=== PATIENT | male | born 1945 | race Caucasian/White ===

== ENCOUNTER → 2020-08-21 | Outpatient (CLI) | payer MEDICARE, OTHER | LOC: YCFC.O 16:21 | PROVIDERS: ATTEND Nurse Practitioner | DX: Z03.89 Encounter for observation for other suspected diseases and conditions ruled out (principal); Z20.828 Contact with and (suspected) exposure to other viral communicable diseases ==

== ENCOUNTER 2020-10-04 14:49 | Emergency (ER) | payer MEDICARE, OTHER ==
[2020-10-04] MEDS ORDERED: TETANUS,DIPHTHERIA,PERTUSSIS 1 EA SYG IM ONE (15:01)
--- NOTE | 2020-10-04 15:02 | ED.PDOC ---
History of Present Illness - General Time Seen by Provider: 10/04/20 14:50 Source: patient, RN notes reviewed, Vital Signs reviewed Exam Limitations: no limitations - History of Present Illness Initial Comments: 75 yo male with hx of prostate cancer in remission comes in after fall forward while moving furniture today. Fell onto face, denies LOC. Has laceration to right eye, and bilateral shoulder pain. Unsure when his last tetanus shot was. No AMS< not on blood thinners. Occurred: just prior to arrival Allergies/Adverse Reactions: Allergies NO KNOWN ALLERGY Allergy (Verified 10/04/20 15:08) Home Medications: Ambulatory Orders Gentamicin 0.3% Ophth Елена [Garamycin Opthalmic Solution] 0.3 % OP Q4H 5 Days #1 bttl 10/04/20 Naproxen Sodium [Naproxen] 220 mg PO BID PRN #30 tab 10/04/20 Review of Systems - Review of Systems Constitutional: Denies: chills, fever EENTM: Denies: eye pain, blurred vision, tearing, double vision, throat pain Respiratory: Denies: cough, short of breath Cardiology: Denies: chest pain, palpitations, syncope Gastrointestinal/Abdominal: Denies: abdominal pain Genitourinary: Denies: hematuria Musculoskeletal: States: joint pain, muscle pain, neck pain. Denies: back pain Skin: States: rash Neurological: Denies: headache, numbness, paresthesia, seizure, weakness Endocrine: Denies: unexplained weight gain, unexplained weight loss Hematologic/Lymphatic: Denies: blood clots, easy bleeding, easy bruising Past Medical History (General) - Patient Medical History Hx Seizures: No Hx Stroke: No Hx Dementia: No Hx Asthma: No Hx Congestive Heart Failure: No Hx Pacemaker: No Hx Hypertension: Yes Hx Cancer: Yes - prostate Physical Exam - Physical Exam General Appearance: Alert, Comfortable, No apparent distress, Well Developed, Well Groomed, Well Hydrated, Well Nourished Head Injury: other - negative goff sign, no raccoon eyes, does have mild swelling to upper right eye lid, 3 cm laceration to upper and lower eyelid on right Eye Exam: right other - EOMI, conjuncitiva injected, PERRLA, left normal ENT Exam: hearing grossly normal, no evidence of ENT injury, no dental injury Peripheral Pulses: radial,right: 2+, radial,left: 2+ Cardiovascular/Respiratory: regular rate, rhythm, no M/R/G, normal peripheral pulses, normal breath sounds, no respiratory distress, other - bilateral pedal edema Gastrointestinal/Abdominal: non tender, soft Back Exam: normal inspection, no CVA tenderness, no vertebral tenderness, other - superfical abrasian to mid back Extremity Exam: no evidence of injury, normal range of motion, non-tender, no pedal edema, pelvis stable Neurologic: wood room hand II-XII nml as tested, no motor/sensory deficits, alert, normal mood/affect, oriented x 3 Skin Exam: warm/dry, other - laceration as noted above - Rocky Coma Score Best Eye Response (Rocky): (4) open spontaneously Best Verbal Response (Radha): (5) oriented Best Motor Response (Radha): (6) obeys commands Rocky Total: 15 Progress - Progress Progress: 10/04/20 16:09 CT head, face, C-spine no acute pathology bilateral shoulder xray no acute pathology tetanus updated. The data reviewed when caring for this patient included: nurse notes, prior records, etc. The history and assessments from nurses notes were reviewed and considered, and the patient's home medication list was also reviewed and considered. My assessment and the results of testing completed here in the ED were discussed with the patient/family. All questions were answered, and they express understanding of my assessment and the plan. They have been instructed to return if their symptoms worsen, and have been asked to follow up with their primary care physician to recheck today's presenting complaint. return precautions given. I have reviewed medication, benefits, alternatives and side effects. Patient decided to proceed with medication. 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 Time of Disposition: 15:57 Disposition: Discharge to Home or Self Care Instructions: Preventing Falls in the Older Adult, Laceration Repair With Glue (DC), Muscle Spasms (DC), Corneal Abrasion (DC) Diet: resume usual diet Activity: increase activity as tolerated Referrals: Stoney Ayala MD [Primary Care Provider] - 1-5 Days Prescriptions: Gentamicin 0.3% Ophth Елена [Garamycin Opthalmic Solution] 0.3 % OP Q4H 5 Days #1 bttl Naproxen Sodium [Naproxen] 220 mg PO BID PRN #30 tab PRN Reason: Pain Home Medications: Ambulatory Orders Gentamicin 0.3% Ophth Елена [Garamycin Opthalmic Solution] 0.3 % OP Q4H 5 Days #1 bttl 10/04/20 Naproxen Sodium [Naproxen] 220 mg PO BID PRN #30 tab 10/04/20 Additional Instructions: magnesium oxide 400 mg once daily as needed for muscle spasm.
[2020-10-04] MEDS ORDERED: HYDROcodone 5MG/APAP 325MG 1 EA TAB PO ONE (15:42)
--- NOTE | 2020-10-04 15:45 | RAD ---
EXAM: XR Left Shoulder Complete, 2 Views CLINICAL HISTORY: fall TECHNIQUE: 2 views of the left shoulder. COMPARISON: No relevant prior studies available. FINDINGS: Bones/joints: Mild calcific tendinitis about the left shoulder. No acute fracture. No dislocation. Soft tissues: No abnormality noted. IMPRESSION: Chronic changes as above. No acute disease. Electronically signed by: Stella Fernandez MD 10/04/2020 3:43 PM [facility]
--- NOTE | 2020-10-04 15:46 | RAD ---
EXAM: XR Right Shoulder Complete, 2 Views CLINICAL HISTORY: fall TECHNIQUE: 2 views of the right shoulder. COMPARISON: No relevant prior studies available. FINDINGS: Bones/joints: Mild inferior glenohumeral spurring noted. No acute fracture. No dislocation. Soft tissues: No abnormality noted. IMPRESSION: Chronic changes as above. No acute disease. Electronically signed by: Stella Fernandez MD 10/04/2020 3:44 PM [facility]
--- NOTE | 2020-10-04 15:52 | CT ---
EXAM DESCRIPTION: Head CLINICAL HISTORY: fall COMPARISON: None Available. TECHNIQUE: Contiguous axial images of the brain were obtained without the administration of intravenous contrast. This exam was performed according to our departmental dose-optimization program, which includes automated exposure control, adjustment of the mA and/or kV according to patient size and/or use of iterative reconstruction technique. FINDINGS: There is no acute intracranial hemorrhage or mass effect. There is atherosclerosis. Ventricular system is within normal limits. There is adequate contreras-white matter differentiation. There is no skull fracture. The visualized paranasal sinuses and mastoid air cells are within normal limits. IMPRESSION: No acute intracranial abnormalities. Electronically signed by: Todd Briscoe MD 10/04/2020 3:50 PM [facility]
--- NOTE | 2020-10-04 15:54 | CT ---
CT CERVICAL SPINE WITHOUT CONTRAST. CLINICAL HISTORY: Pain after fall. COMPARISON: None. TECHNIQUE: Axial nonenhanced CT imaging of the cervical spine. Reformatted coronal and sagittal images obtained. Dose reduction technique utilized with automated exposure control, adjustment of the mA and/or kV according to patient size or use of iterative reconstruction technique. FINDINGS: There is moderate degenerative disc space narrowing at all levels from C3 to C7. There is mild facet arthropathy and uncovertebral joint hypertrophy which contributes to mild to moderate variable severity bilateral foraminal stenosis at multiple levels. This is greatest on the right side C3-4. There is right C3-4 facet joint effusion. There is bony hypertrophy and partial bony fusion along the anterior margin of the C1 ring and tip of the odontoid process. No prevertebral edema. No fracture within the posterior elements. The craniocervical and cervicothoracic junction alignment is anatomic. There is a disc spur complex C6-7 which flattens the ventral thecal sac and spinal cord. The pharynx is unremarkable. Normal larynx and epiglottis. There are polyps or retention cyst in the left sphenoid sinus. Remaining paranasal sinuses are clear. Mastoid air cells are clear bilaterally. Intact skull base. No lymphadenopathy seen throughout the neck. The submandibular and parotid glands appear normal. There is a lobular low-density 3.2 cm nodule in the left lobe of the thyroid with a a few dystrophic peripheral calcifications. Right lobe of the thyroid appears normal. Clear imaged lung apices. IMPRESSION: 1. Generalized cervical spondylosis. Degenerative multilevel foraminal stenosis. Spinal canal stenosis at the C6-7 as detailed above. No acute fracture or subluxation. 2. Left sphenoid sinus mucosal disease. 3. 3.2 cm incidental left thyroid nodule. Recommend thyroid US. Reference: J Am Muna Radiol. 2014;12(2): 143-50 Electronically signed by: Karen Turner DO 10/04/2020 3:52 PM [facility]
[2020-10-04] MEDS ORDERED: NEOMYCIN-BACITRACIN-POLYMYXIN 0.9 GM UD TOP ONE (15:56)
--- NOTE | 2020-10-04 15:57 | CT ---
EXAM DESCRIPTION: Maxillofacial CLINICAL HISTORY: fall COMPARISON: None Available. TECHNIQUE: Contiguous axial images of the face were obtained without the administration of intravenous contrast. This exam was performed according to our departmental dose-optimization program, which includes automated exposure control, adjustment of the mA and/or kV according to patient size and/or use of iterative reconstruction technique. FINDINGS: There is soft tissue swelling at the right forehead and right periorbital level. There is no acute facial fracture. There is no orbital emphysema. There is atherosclerosis. Lobular opacities within the left sphenoid sinus compatible with mucoid retention cysts. There is no bony destruction. The retrobulbar fat is within normal limits. IMPRESSION: No acute facial fracture. Right forehead and right periorbital hematoma. Electronically signed by: Todd Briscoe MD 10/04/2020 3:55 PM [facility]
[2020-10-04 16:24] VITALS: BP 154/70; TEMP 97.7; O2SAT 97
== END 2020-10-04 16:24 | disposition home or self-care (01) ==
LOC: ER 14:49
DX: S05.01XA Injury of conjunctiva and corneal abrasion without foreign body, right eye, initial encounter (principal); S01.111A Laceration without foreign body of right eyelid and periocular area, initial encounter; M54.2 Cervicalgia; M77.8 Other enthesopathies, not elsewhere classified; Z85.46 Personal history of malignant neoplasm of prostate; W01.198A Fall on same level from slipping, tripping and stumbling with subsequent striking against other object, initial encounter; Y92.9 Unspecified place or not applicable; Y93.89 Activity, other specified